=== PATIENT | male | born 1985 | race Caucasian/White ===

== ENCOUNTER 2016-08-25 16:44 | Emergency (ER) | payer BC, OTHER ==
[~2016-08-25] VITALS: Ht 190.5 cm; Wt 158.8 kg
[2016-08-25] MEDS ORDERED: AMOX500C2 PO (17:11)
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
[2016-08-25] MEDS ORDERED: AUGMENTIN 875 MG TAB (AMOXICILLIN/CLAVULANATE) PO SCH (17:15)
[2016-08-25] MEDS ORDERED: DEXAMETHASONE PF 10 MG/ML (DECADRON) VIAL IM ONE (17:15)
[2016-08-25] MEDS ORDERED: IBUPROFEN 800 MG (MOTRIN) TAB PO ONE (17:15)
[2016-08-25 17:31] VITALS: BP 156/100
== END 2016-08-25 17:31 | disposition home or self-care (01) ==
LOC: EDUNIT# 16:44 → ER 16:48
DX: H66.91 Otitis media, unspecified, right ear (principal)
CPT/HCPCS: 96372; 99282

== ENCOUNTER 2017-10-05 18:30 | Emergency (ER) | payer BC ==
[~2017-10-05] VITALS: Ht 182.9 cm; Wt 167.8 kg
[~2017-10-05 18:30] MED LIST: AMOX500C2 PO
[2017-10-05] MEDS ORDERED: ASPIRIN 81 MG CHEW (CHILDREN'S ASA) PO ONE (18:45)
[2017-10-05 18:53] LABS: BASOPHILS % (AUTO) 0 % (0-10); EOSINOPHILS # (AUTO) 0.5 10^3/uL (0.0-0.3); EOSINOPHILS % (AUTO) 4 % (0-10); HEMATOCRIT 47 % (40-54); HEMOGLOBIN 16.1 G/DL (13.3-17.7); LYMPHOCYTES # (AUTO) 3.3 X 10^3 (1.0-4.0); LYMPHOCYTES % (AUTO) 25 % (12-44); MEAN CORPUSCULAR HEMOGLOBIN 28 PG (25-34); MEAN CORPUSCULAR HGB CONC 34 G/DL (32-36); MEAN CORPUSCULAR VOLUME 83 FL (80-99); MONOCYTES % (AUTO) 8 % (0-12); NEUTROPHILS # (AUTO) 8.1 X 10^3 (1.8-7.8); NEUTROPHILS % (AUTO) 63 % (42-75); PLATELET COUNT 234 10^3/uL (130-400); RED BLOOD COUNT 5.69 10^6/uL (4.35-5.85); RED CELL DISTRIBUTION WIDTH 13.9 % (10.0-14.5); WHITE BLOOD COUNT 12.9 10^3/uL (4.3-11.0)
[2017-10-05] MEDS ORDERED: PROP120C3 (18:56)
[2017-10-05 19:14] LABS: ALANINE AMINOTRANSFERASE 86 U/L (0-55); ALBUMIN 4.1 GM/DL (3.2-4.5); ALKALINE PHOSPHATASE 58 U/L (40-136); AMYLASE 45 U/L (25-125); BILIRUBIN,TOTAL 0.3 MG/DL (0.1-1.0); BUN/CREATININE RATIO 10; CALCIUM 9.5 MG/DL (8.5-10.1); CARBON DIOXIDE 21 MMOL/L (21-32); CHLORIDE 107 MMOL/L (98-107); CREATINE KINASE 195 U/L (30-200); GFR ESTIMATED > 60; GLUCOSE 103 MG/DL (70-105); LIPASE 17 U/L (8-78); POTASSIUM 4.1 MMOL/L (3.6-5.0); SODIUM 139 MMOL/L (135-145); TOTAL PROTEIN 7.7 GM/DL (6.4-8.2)
[2017-10-05 19:20] LABS: CREATINE KINASE MB 1.4 NG/ML (<6.6)
--- NOTE | 2017-10-05 19:34 | Diagnostic Imaging Report ---
CHEST 1 VIEW, AP/PA ONLY Indication: Sharp chest pain. Comparison: None available. Findings: Examination is mildly limited due to patient's body habitus. Allowing for this, no focal airspace disease in the visualized lungs. Please note that the posterior lower lobes are poorly evaluated by portable radiography. No pleural effusion or pneumothorax. Normal cardiomediastinal silhouette. Impression: No acute cardiopulmonary process by portable radiography. Dictated by: Dictated on workstation # [id number]
[2017-10-05 19:43] LABS: AMPHETAMINE SCREEN, URINE NEGATIVE (NEGATIVE); BARBITURATE SCREEN URINE NEGATIVE (NEGATIVE); BENZODIAZEPINES SCREEN URINE NEGATIVE (NEGATIVE); CANNABINOID SCREEN, URINE NEGATIVE (NEGATIVE); COCAINE SCREEN URINE NEGATIVE (NEGATIVE); METHADONE STAT NEGATIVE (NEGATIVE); METHAMPHETAMINE SCREEN URINE S NEGATIVE (NEGATIVE); OPIATE SCREEN URINE NEGATIVE (NEGATIVE); OXYCODONE STAT NEGATIVE (NEGATIVE); PROPOXYPHENE STAT NEGATIVE (NEGATIVE); TRICYCLIC ANTIDEPRESSANTS SCRE NEGATIVE (NEGATIVE)
[2017-10-05] MEDS ORDERED: KETOROLAC 30 MG/ML VIAL IVP ONE (19:45)
[2017-10-05] MEDS ORDERED: NS 100 ML (IVPB) BAG IV ONE (19:45)
[2017-10-05] MEDS ORDERED: IOHEXOL 350 MG/ML 150 ML (OMNIPAQUE 350) VIAL IV ONE (19:45)
--- NOTE | 2017-10-05 20:29 | Diagnostic Imaging Report ---
PROCEDURE: CT angiography of the chest with contrast. TECHNIQUE: Multiple contiguous axial images were obtained through the chest after uneventful bolus administration of intravenous contrast. Reconstructed CTA MIP acquisitions were also performed. INDICATION: Chest pain radiating to back. COMPARISON: None available. FINDINGS: Vasculature: No central pulmonary emboli within the pulmonary trunk or main pulmonary arteries. Due to bolus timing, the lobar and segmental pulmonary arteries are not opacified to the degree that can be assess for emboli. Thoracic aorta is normal in caliber. No aortic dissection or pseudoaneurysm. Heart and mediastinum: Visualized thyroid is normal. No supraclavicular, axillary, or intra-thoracic lymphadenopathy. The heart is normal in size without pericardial effusion. Pleura: No pleural effusion or pneumothorax. Lungs and airway: No endoluminal lesion in the trachea or central bronchi. No pulmonary mass, indeterminate nodule or consolidation. Calcified right lower lobe pulmonary nodules compatible with old granulomatous infection. Upper abdomen: Diffuse hepatic steatosis. Musculoskeletal: No concerning osseous lesion. IMPRESSION: 1. No aortic dissection. 2. No central pulmonary emboli. Assessment for pulmonary emboli distal to the main pulmonary arteries is not possible due to contrast bolus timing resulting in suboptimal opacification of the pulmonary arteries. 3. No acute pulmonary or pleural pathology. 4. Hepatic steatosis. Dictated by: Dictated on workstation # [id number]
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
[2017-10-05] MEDS ORDERED: TRAM-42 PO (20:40)
[2017-10-05] MEDS ORDERED: RX-TRAMADOL 50 MG (ULTRAM) TAB PPK#4 PO STA (20:40)
[2017-10-05] MEDS ORDERED: METH4TAB PO (20:40)
[2017-10-05] MEDS ORDERED: RX-TRAMADOL 50 MG (ULTRAM) TAB PPK#4 PO ONE (20:50)
[2017-10-05 22:00] VITALS: BP 152/89
== END 2017-10-05 20:56 | disposition home or self-care (01) ==
LOC: EDUNIT# 18:30 → ER 18:32
DX: R07.89 Other chest pain (principal); I10 Essential (primary) hypertension; Z90.89 Acquired absence of other organs
CPT/HCPCS: 36415; 71045; 71275; 80053; 80306; 80320; 82150; 82550; 82553; 83690; 83735; 83880; 84484; 85025; 85610; 85730; 93005; 93041; 96374

== ENCOUNTER 2020-03-15 15:19 | Outpatient (RCR) | payer BC, OTHER ==
[~2020-03-15 15:19] MED LIST changes: +METH4TAB PO; +PROP120C3; +TRAM-42 PO
== END 2020-06-13 | disposition home or self-care (01) ==
LOC: ONC 15:19
PROVIDERS: ATTEND Radiology Radiation Oncology
DX: C49.22 Malignant neoplasm of connective and soft tissue of left lower limb, including hip (principal); M19.90 Unspecified osteoarthritis, unspecified site; R31.9 Hematuria, unspecified; E66.01 Morbid (severe) obesity due to excess calories; F17.210 Nicotine dependence, cigarettes, uncomplicated
CPT/HCPCS: 99204

== ENCOUNTER 2023-01-29 20:06 | Emergency (ER) | payer BC ==
--- NOTE | 2023-01-29 20:19 | ED Lower Extremity ---
General Chief Complaint: Laceration Stated Complaint: R FOOT LAC Nursing Triage Note: Pt was remodeling his bathroom tonight and cut his foot on a blade. Pt presents with a right foot laceration Source: patient History of Present Illness Date Seen by Provider: Jan 29, 2023 Time Seen by Provider: 20:15 Initial Comments 29-year-old male presenting with laceration to his right foot. He states that he was wearing flip-flops and was trying to use a drill with a sawblade on it to cut a hole for the toilet. He is doing renovations on their house. The sawblade kicked back and he had a cut to the right foot. He states his last tetanus was more than 5 years ago. He denies having any numbness or weakness. He does have some pain with the cut Onset: just prior to arrival Severity: mild Pain/Injury Location: right foot Method of Injury: incised Modifying Factors: Worse With Movement Allergies and Home Medications Allergies Coded Allergies: No Known Drug Allergies (Unverified , 10/05/17) Patient Home Medication List Home Medication List Reviewed: Yes Cephalexin (Cephalexin) 500 Mg Tablet, 500 MG PO TID Prescribed by: ERNIE GU on 01/29/232143 Methylprednisolone (Medrol) 4 Mg Tab.ds.pk, 4 MG PO UD Prescribed by: SHIRAZ POST on 10/05/172039 Propranolol HCl (Propranolol HCl ER) 120 Mg Cap.sa.24h, (Reported) Entered as Reported by: JASON IGNACIO on 10/05/17 185 Tramadol HCl (Ultram) 50 Mg Tablet, 50 MG PO Q4H Prescribed by: SHIRAZ POST on 10/05/172039 Review of Systems Constitutional: No chills, No fever EENTM: no symptoms reported Respiratory: no symptoms reported Cardiovascular: no symptoms reported Gastrointestinal: no symptoms reported Genitourinary: no symptoms reported Musculoskeletal: see HPI Skin: see HPI Psychiatric/Neurological: Denies Numbness, Denies Paresthesia Past Bkfcjrd-Nnocbw-Hjuqey Hx Patient Social History Tobacco Use?: Yes Tobacco type used: Cigarettes Smoking Status: Current Everyday Smoker Use of E-Cig and/or Vaping dev: No Substance use?: No Alcohol Use?: No Immunizations Up To Date Tetanus Booster (TDap): Unknown Seasonal Allergies Seasonal Allergies: Yes Past Medical History Surgeries: Yes (HERNIA REPAIR) Adenoidectomy, Tonsillectomy Respiratory: No Cardiac: Yes Hypertension Neurological: No Reproductive Disorders: No Genitourinary: No Gastrointestinal: No Musculoskeletal: Yes Gout Endocrine: Yes (OBESE) HEENT: No Cancer: No Psychosocial: No Integumentary: No Blood Disorders: No Physical Exam Vital Signs Vital Signs - First Documented 01/29/23 20:10 Temp 36.6 Pulse 75 Resp 16 B/P (MAP) 193/95 (127) Pulse Ox 97 O2 Delivery Room Air Capillary Refill : Less Than 3 Seconds Height, Weight, BMI Height: 6'3" Weight: 370lbs. oz. 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 The wound was then further cleaned with iodine and sterile water. No foreign bodies were visualized or seen. The wound edges were approximated using 4-0 Ethilon. He had 7 simple interrupted stitches placed to approximate the wound edges. He tolerated procedure well without any immediate complication. Counseled on follow-up and return precautions as well as management of the stitches. Advised to have the stitches removed in 10 to 14 days. 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 He also was working with wood and a saw when the cut happened tonight. Progress/Results/Core Measures Results/Orders My Orders Orders - ERNIE GU MD DiphtDary(Acell),Tet Adult (Boostrix (01/29/23 20:45) Lidocaine 1% Inj 20 Ml (Xylocaine 1% Inj (01/29/23 20:45) Suture Set At Bedside (01/29/23 20:45) Wound Dressing-Ed (01/29/23 20:45) Rx-Cephalexin Capsule (Rx-Keflex Capsule (01/29/23 21:45) Medications Given in ED Current Medications Medications Dose Ordered Sig/Troy Route Start Time Stop Time Status Last Admin Dose Admin Diphtheria/ Tetanus/Acell Pertussis 0.5 ml ONCE ONCE IM 01/29/23 20:45 01/29/23 20:46 DC 01/29/23 20:58 0.5 ML Vital Signs/I&O 01/29/23 01/29/23 20:10 21:48 Temp 36.6 36.6 Pulse 75 75 Resp 16 16 B/P (MAP) 193/95 (127) 193/95 Pulse Ox 97 97 O2 Delivery Room Air Room Air Blood Pressure Mean: 127 Departure Impression Primary Impression: Laceration of right foot excluding toes without complication Qualified Codes: S91.311A - Laceration without foreign body, right foot, initial encounter Disposition: HOME, SELF-CARE Condition: Stable Departure-Patient Inst. Decision time for Depature: 21:42 Referrals: NO,LOCAL PHYSICIAN (PCP) Primary Care Physician [facility] Patient Instructions: Laceration Repair With Stitches ED, Wound Care ED Add. Discharge Instructions: Try to keep wound clean and dry for the first 24 hours. Try to elevate wound rest your foot is much as you can. May apply ice 15 to 20 minutes every few hours as you are able to to help with swelling and bruising. Take acetaminophen and/or ibuprofen if needed to help with pain. Have the stitches removed in 10 to 14 days. You may return here and he will be included in today's ED visit. Be seen sooner if you are having concerns for infection such as redness streaking up your foot, pus draining from the wound, fever over 101 Fahrenheit. All discharge instructions reviewed with patient and/or family. Voiced understanding. Scripts Cephalexin (Cephalexin) 500 Mg Tablet 500 MG PO TID for foot laceration for 7 Days, #21 TAB 0 Refills Prov: ERNIE GU MD 01/29/23 ERNIE GU MD Jan 29, 2023 20:19
[2023-01-29] MEDS ORDERED: Tetanus/Diphtheria/Pertussis (Acell) ADULT Vaccine 0.5 ML IM ONE (20:45)
[2023-01-29] MEDS ORDERED: LIDOCAINE 1% INJ 20 ML VIAL INJ STA (20:45)
[2023-01-29] MEDS ORDERED: CEPH500T PO (21:44)
[2023-01-29] MEDS ORDERED: RX-CEPHALEXIN (KEFLEX) 250 MG CAP PPK#4 PO STA (21:45)
[2023-01-29 21:48] VITALS: BP 193/95
== END 2023-01-29 21:52 | disposition home or self-care (01) ==
LOC: EDUNIT# 20:06 → ER FS 20:08
DX: S91.311A Laceration without foreign body, right foot, initial encounter (principal); E66.9 Obesity, unspecified; F17.210 Nicotine dependence, cigarettes, uncomplicated; Z23 Encounter for immunization; Z28.310 Unvaccinated for COVID-19; W26.8XXA Contact with other sharp object(s), not elsewhere classified, initial encounter
CPT/HCPCS: 12001; 90471; 90715